=== PATIENT | female | born 1975 | race American Indian/Alaskan Native ===

== ENCOUNTER 2019-01-24 11:11 | Emergency (ER) | payer OTHER ==
[2019-01-24 11:21] VITALS: BMI 24.8
[2019-01-24 11:22] VITALS: TEMP 98.3
[2019-01-24] MEDS ORDERED: TDAP Vaccine 0.5 mL Syr IM ONE (11:50)
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
[2019-01-24] MEDS ORDERED: Bacitracin 500 Units/gm Oint Foilpak UD ONE (12:10)
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
[2019-01-24 13:03] LABS: URINE APPEARANCE CLEAR (CLEAR); URINE BILIRUBIN NEGATIVE (NEGATIVE); URINE BLOOD NEGATIVE (NEGATIVE); URINE COLOR YELLOW (YELLOW); URINE GLUCOSE (UA) NEGATIVE (NEGATIVE); URINE LEUKOCYTE ESTERASE NEGATIVE Leu/uL (NEGATIVE); URINE PROTEIN NEGATIVE mg/dL (<30 mg/dL); URINE UROBILINOGEN 0.2 E.U./dL (<1 E.U./dL)
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
[2019-01-24 16:08] VITALS: O2SAT 99
[2019-01-24 18:51] VITALS: BP 121/71; PULSE 92; RESP 17
--- NOTE | 2019-01-25 10:30 | CARD ---
APPROVED REPORT Date of service: 01/24/2019 EKG Measurement Heart [id number] <Conclusion> Normal sinus rhythm Possible Left atrial enlargement Borderline ECG
== END 2019-01-24 19:01 | disposition home or self-care (01) ==
LOC: ED 11:11
DX: S00.81XA Abrasion of other part of head, initial encounter (principal); S60.219A Contusion of unspecified wrist, initial encounter; Y08.89XA Assault by other specified means, initial encounter; I10 Essential (primary) hypertension; F17.210 Nicotine dependence, cigarettes, uncomplicated; Z23 Encounter for immunization